=== PATIENT | female | born 1940 | race African-American/Black ===

== ENCOUNTER 2016-07-16 04:04 | Inpatient (IN) | payer OTHER ==
[~2016-07-16] VITALS: Ht 175.3 cm; Wt 112.9 kg
[2016-07-16] VITALS (8 sets, daily range): BP systolic 143–168; BP diastolic 68–82
[~2016-07-16 04:04] MED LIST: ASPI-1035 PO
[2016-07-16] MEDS ORDERED: NITROGLYCERIN OINT 1GM/INCH UDPKT TD STA (04:06)
[2016-07-16] MEDS ORDERED: ENALAPRIL 2.5MG/2ML VIAL 2ML IV STA (04:06)
[2016-07-16] MEDS ORDERED: FUROSEMIDE 40MG/4ML VIAL IV STA (04:06)
[2016-07-16 04:24] LABS: BASOPHILS % 1.3 % (0.0-2.0); EOSINOPHILS % 2.8 % (0.0-5.0); HEMOGLOBIN. 10.3 g/dL (12.0-16.0); MEAN CORPUSCULAR HEMOGLOBIN 29.1 pg (28.0-32.0); MEAN CORPUSCULAR HGB CONC 31.3 g/dL (31.0-37.0); MEAN CORPUSCULAR VOLUME 93.2 fL (81.0-99.0); MEAN PLATELET VOLUME 9.5 fl (7.4-10.4); MONOCYTES % 9.3 % (2.0-8.0); NEUTROPHILS % 60.6 % (40.0-76.0); PLATELET 241 x1000/uL (130-400); RED BLOOD CELL COUNT 3.54 mill/uL (4.2-5.4); RED CELL DISTRIBUTION WIDTH 17.9 % (11.6-14.6); WHITE BLOOD COUNT 8.9 x1000/uL (4.5-11.0)
[2016-07-16 04:33] LABS: PARTIAL THROMBOPLASTIN TIME 27.3 sec (24.0-34.0); PROTHROMBIN TIME 10.5 sec
[2016-07-16 04:41] LABS: ALANINE AMINOTRANSFERASE 12 IU/L (13-61); ALBUMIN 3.5 g/dL (3.4-5.0); ANION GAP 20; CALCIUM 8.1 mg/dL (8.5-10.1); CARBON DIOXIDE 28 mEq/L (21-32); CHLORIDE 95 mEq/L (98-107); INDEX HEMOLYSI 2 (1-3); INDEX ICTERIC 1 (1-4); INDEX LIPEMIC 1 (1-3); NT PRO B-TYPE NATRIURETIC PEP 27042 pg/mL (5-125); TROPONIN I 0.04 ng/mL (0.00-0.04); UREA NITROGEN BLOOD 60 mg/dL (7-21); eGFR 4 mL/min (>60)
[2016-07-16 05:00] LABS: BG BASE EXCESS -0.6 mmol/L (-2.0-2.0); BG BILEVEL POS AIRWAY PRESSURE 15/5; BG CARBOXYHEMOGLOBIN 0.2 % (0.5-1.5); BG DEOXYHEMOGLOBIN 0.5 % (0.0-5.0); BG FRACTION INSPIRED OXYGEN 100; BG HCO3 ACT 25.9 mmol/L (22.0-26.0); BG METHEMOGLOBIN 0.3 % (0.0-1.5); BG OXYGEN SATURATION 99.5 % (92.0-98.5); BG PCO2 51.3 mmHg (35.0-45.0); BG PH 7.321 (7.350-7.450); BG PO2 315.6 mmHg (75.0-100.0); BG SAMPLE SITE RIGHT RADIAL; BG TOTAL HEMOGLOBIN 10.8 g/dL (12.0-18.0); BG VENT MODE MASK - BIPAP; BG VENT RATE 14 set
[2016-07-16] MEDS ORDERED: ACETAMINOPHEN 325MG TABLET PO ONE (06:00)
[2016-07-16] MEDS ORDERED: MAGNESIUM/ALUMINUM HYDROXIDE/SIMETHICONE 30ML UDC PO PRN (10:00)
[2016-07-16] MEDS ORDERED: NA PHOS,M-B/NA PHOS,DI-BA ENEMA 118ML PR PRN (10:00)
[2016-07-16] MEDS ORDERED: DOCUSATE SODIUM 100MG CAPSULE PO PRN (10:00)
[2016-07-16] MEDS ORDERED: ZOLPIDEM TARTRATE 5MG TABLET PO PRN (10:00)
[2016-07-16] MEDS ORDERED: DIPHENHYDRAMINE 50MG/ML VIAL IV PRN (10:00)
[2016-07-16] MEDS ORDERED: TRAMADOL 50MG TABLET PO PRN (10:00)
[2016-07-16] MEDS ORDERED: CLONIDINE 0.1MG TABLET PO PRN (10:00)
[2016-07-16] MEDS ORDERED: GUAIFENESIN 200MG/10ML SUGAR FREE UDC PO PRN (10:00)
[2016-07-16] MEDS ORDERED: NITROGLYCERIN 0.4MG TABLET SL SL PRN (10:00)
[2016-07-16] MEDS ORDERED: ACETAMINOPHEN 325MG TABLET PO PRN (10:00)
[2016-07-16] MEDS ORDERED: ENOXAPARIN 40MG/0.4ML SYR SUBCUT SCH (10:00)
[2016-07-16] MEDS ORDERED: ONDANSETRON HCL 4MG/2ML VIAL IV PRN (10:00)
[2016-07-16] MEDS ORDERED: MORPHINE SULFATE 4 MG/ML CPJ (NOT FOR IM USE) IV PRN (10:00)
[2016-07-16] MEDS ORDERED: IPRATROPIUM/ALBUTEROL 0.5-3(2.5)MG/3ML NEB INH PRN (10:00)
[2016-07-16] MEDS ORDERED: LORAZEPAM 2MG/ML CPJ IV PRN (10:00)
[2016-07-16] MEDS: LISINOPRIL 20MG TABLET PO SCH ×2 (10:15→21:16)
[2016-07-16] MEDS: ASPIRIN 325MG EC TABLET PO SCH (10:15)
[2016-07-16] MEDS: ASCORBIC ACID 500 MG TABLET PO SCH ×2 (10:15→21:16)
[2016-07-16] MEDS: FOLIC ACID/VITAMIN B COMP W-C TABLET PO SCH (10:15)
[2016-07-16] MEDS: PANTOPRAZOLE SODIUM 40 MG/VIAL IV SCH (10:15)
[2016-07-16] MEDS: ENOXAPARIN 30MG/0.3ML SYR SUBCUT SCH (10:20)
[2016-07-16 15:18] LABS: CREATINE KINASE MB FRACTION 1.9 ng/mL (0.5-3.6); TROPONIN I 0.07 ng/mL (0.00-0.04)
[2016-07-16] MEDS ORDERED: DEXTROSE 50% WATER 50ML SYRINGE IV PRN (18:15)
[2016-07-16] MEDS: BLOOD SUGAR DIAGNOSTIC STRIP TEST SCH (21:00)
[2016-07-16] MEDS: INSULIN LISPRO 100 UNITS/ML SUBCUT SCH (21:17)
[2016-07-16] MEDS: INSULIN DETEMIR UD 100 UNITS/ML SYR SUBCUT SCH (21:17)
[2016-07-16 22:45] LABS: CREATINE KINASE MB FRACTION 1.8 ng/mL (0.5-3.6); TROPONIN I 0.09 ng/mL (0.00-0.04)
[2016-07-17] VITALS (13 sets, daily range): BP systolic 125–156; BP diastolic 64–93
[2016-07-17 06:53] LABS: BASOPHILS % 1.2 % (0.0-2.0); EOSINOPHILS % 3.7 % (0.0-5.0); HEMATOCRIT. 27.4 % (36.0-48.0); HEMOGLOBIN. 8.6 g/dL (12.0-16.0); LYMPHOCYTES % 15.1 % (20.0-50.0); MEAN CORPUSCULAR HGB CONC 31.4 g/dL (31.0-37.0); MEAN CORPUSCULAR VOLUME 92.3 fL (81.0-99.0); MEAN PLATELET VOLUME 9.1 fl (7.4-10.4); MONOCYTES % 8.3 % (2.0-8.0); NEUTROPHILS % 71.7 % (40.0-76.0); PLATELET 159 x1000/uL (130-400); RED BLOOD CELL COUNT 2.97 mill/uL (4.2-5.4); RED CELL DISTRIBUTION WIDTH 17.3 % (11.6-14.6); WHITE BLOOD COUNT 5.9 x1000/uL (4.5-11.0)
[2016-07-17 07:45] LABS: ALANINE AMINOTRANSFERASE 11 IU/L (13-61); ALBUMIN 2.8 g/dL (3.4-5.0); ANION GAP 17; CALCIUM 8.1 mg/dL (8.5-10.1); CARBON DIOXIDE 26 mEq/L (21-32); CHLORIDE 100 mEq/L (98-107); INDEX HEMOLYSI 1 (1-3); INDEX ICTERIC 1 (1-4); INDEX LIPEMIC 1 (1-3); MAGNESIUM 2.3 mg/dL (1.8-2.4); PHOSPHORUS 6.3 mg/dL (2.5-4.9); UREA NITROGEN BLOOD 44 mg/dL (7-21); eGFR 5 mL/min (>60)
[2016-07-17] MEDS: BLOOD SUGAR DIAGNOSTIC STRIP TEST SCH ×4 (08:01→21:00)
[2016-07-17] MEDS: INSULIN LISPRO 100 UNITS/ML SUBCUT SCH ×4 (08:07→22:28)
[2016-07-17] MEDS: ASCORBIC ACID 500 MG TABLET PO SCH ×2 (09:00→21:05)
[2016-07-17] MEDS: ASPIRIN 325MG EC TABLET PO SCH (09:00)
[2016-07-17] MEDS: PANTOPRAZOLE SODIUM 40 MG/VIAL IV SCH (09:00)
[2016-07-17] MEDS: FOLIC ACID/VITAMIN B COMP W-C TABLET PO SCH (09:00)
[2016-07-17] MEDS: LISINOPRIL 20MG TABLET PO SCH ×3 (09:00→21:00)
[2016-07-17 09:09] LABS: INDEX HEMOLYSI 1 (1-3); INDEX ICTERIC 1 (1-4); INDEX LIPEMIC 1 (1-3); IRON 60 ug/dL (50-175); TOTAL IRON BINDING CAPACITY 168 ug/dL (250-450)
[2016-07-17 09:40] LABS: FOLIC ACID (FOLATE) SERUM 6.8 ng/mL (>5.38)
[2016-07-17] MEDS: ENOXAPARIN 30MG/0.3ML SYR SUBCUT SCH (09:54)
[2016-07-17] MEDS ORDERED: MORPHINE SULFATE 2 MG/ML CPJ (NOT FOR IM USE) IV PRN (11:00)
[2016-07-17] MEDS ORDERED: BUDESONIDE 0.5MG/2ML NEB HHN SCH (11:00)
[2016-07-17] MEDS ORDERED: IPRATROPIUM/ALBUTEROL 0.5-3(2.5)MG/3ML NEB HHN SCH (12:00)
[2016-07-17 13:22] LABS: HEMATOCRIT 28.3 % (36.0-48.0); HEMOGLOBIN 9.1 g/dL (12.0-16.0); MEAN CORPUSCULAR HEMOGLOBIN 29.4 pg (28.0-32.0); MEAN CORPUSCULAR HGB CONC 31.9 g/dL (31.0-37.0); MEAN CORPUSCULAR VOLUME 92.1 fL (81.0-99.0); PLATELET 159 x1000/uL (130-400); RED BLOOD CELL COUNT 3.08 mill/uL (4.2-5.4); RED CELL DISTRIBUTION WIDTH 17.2 % (11.6-14.6); WHITE BLOOD COUNT 5.5 x1000/uL (4.5-11.0)
[2016-07-17] MEDS: INSULIN DETEMIR UD 100 UNITS/ML SYR SUBCUT SCH (22:29)
[2016-07-18] MEDS ORDERED: FAMOTIDINE 20MG/2ML VIAL IV SCH (09:00)
== END 2016-07-17 23:37 | disposition short-term general hospital (02) | DRG 291 ==
LOC: ER 04:07 → 5EST 04:51
PROVIDERS: ADMIT Internal Medicine; ATTEND Internal Medicine
PROC: 5A09457 Assistance with Respiratory Ventilation, 24-96 Consecutive Hours, Continuous Positive Airway Pressure (ICD-10-PCS; principal; 2016-07-16)
PROC: 5A1D00Z (ICD-10-PCS; 2016-07-16)
DX: I13.2 Hypertensive heart and chronic kidney disease with heart failure and with stage 5 chronic kidney disease, or end stage renal disease (principal); I50.33 Acute on chronic diastolic (congestive) heart failure; J96.00 Acute respiratory failure, unspecified whether with hypoxia or hypercapnia; N18.6 End stage renal disease; J45.901 Unspecified asthma with (acute) exacerbation; E44.0 Moderate protein-calorie malnutrition; I42.9 Cardiomyopathy, unspecified; D63.1 Anemia in chronic kidney disease; K21.9 Gastro-esophageal reflux disease without esophagitis; I27.2 Other secondary pulmonary hypertension; E78.5 Hyperlipidemia, unspecified; E11.22 Type 2 diabetes mellitus with diabetic chronic kidney disease; E66.9 Obesity, unspecified; E11.42 Type 2 diabetes mellitus with diabetic polyneuropathy; G62.9 Polyneuropathy, unspecified; E11.65 Type 2 diabetes mellitus with hyperglycemia; Z79.4 Long term (current) use of insulin; Z88.2 Allergy status to sulfonamides; Z99.2 Dependence on renal dialysis; Z82.49 Family history of ischemic heart disease and other diseases of the circulatory system; Z83.3 Family history of diabetes mellitus; Z68.36 Body mass index [BMI] 36.0-36.9, adult
CPT/HCPCS: 36415; 36600; 71010; 80053; 80061; 82375; 82550; 82553; 82607; 82728; 82746; 82805; 82962; 83036; 83540; 83550; 83735; 83880; 84100; 84484; 85025; 85027; 85610; 85730; 93005; 93306; 93970; 94640; 94660; 94664; 96374; 96375; 99285; J1815; J1940; J3490; J7030; J7620; J7626

== ENCOUNTER 2017-02-23 21:30 | Emergency (ER) | payer OTHER ==
[~2017-02-23] VITALS: Ht 172.7 cm; Wt 125.0 kg
[~2017-02-23 21:30] MED LIST changes: -ASPI-1035 PO; +ASPI-1159 PO; +CALCIUM CHLORIDE 1GM/10ML SYR IV ONE; +EPINEPHRINE 0.1MG/ML (1:10,000) 10ML SYR ONE; +SODIUM BICARBONATE 7.5% 0.9 MEQ/ML 50ML SYR IV ONE
[2017-02-23 21:34] VITALS: BP 0/0
== END 2017-02-23 22:20 | disposition expired ==
LOC: ER 22:20
DX: I46.9 Cardiac arrest, cause unspecified (principal); E11.22 Type 2 diabetes mellitus with diabetic chronic kidney disease; I13.11 Hypertensive heart and chronic kidney disease without heart failure, with stage 5 chronic kidney disease, or end stage renal disease; N18.6 End stage renal disease; Z99.2 Dependence on renal dialysis; Z88.3 Allergy status to other anti-infective agents; Z88.2 Allergy status to sulfonamides; Z79.82 Long term (current) use of aspirin; Z88.0 Allergy status to penicillin
CPT/HCPCS: 82962; 92950; 99285; J0171; J3490